=== PATIENT | male | born 1990 | race Caucasian/White ===

== ENCOUNTER 2024-08-17 02:15 | Emergency (ER) | payer BC ==
[2024-08-17 02:54] LABS: #Basophils 0.1 thou/uL (0.0-0.2); #Eosinophils 0.2 thou/uL (0.0-0.7); #Lymphocytes 5.2 thou/uL (1.20-3.40); %Eosinophils 1.9 % (0.0-10.0); %Lymphocytes 49.9 % (21.0-51.0); %Monocytes 9.4 % (0.0-10.0); %Neutrophils 37.8 % (42.0-75.0); Hematocrit 40.8 % (42.0-52.0); Hemoglobin 14.3 g/dL (14.0-18.0); Mean Corpuscular Hemoglobin 32.3 pg (27.0-31.0); Mean Corpuscular Volume 92.4 fl (78.0-98.0); Platelet Count 225 10x3/uL (130-400); RBC Distribution Width 10.7 % (11.5-14.5); Red Blood Cell (RBC) Count 4.41 mill/uL (4.70-6.10); White Blood Cell (WBC) Count 10.5 10x3/uL (4.8-10.8)
[2024-08-17 02:58] LABS: ALT (SGPT) 21 U/L (8-55); AST (SGOT) 33 U/L (5-34); Albumin 4.2 g/dL (3.5-5.0); Alkaline Phosphatase 47 U/L (40-110); Anion Gap 20 mmol/L (10-20); BUN (Urea Nitrogen) 13 mg/dL (8.9-20.6); Bilirubin, Total 0.6 mg/dL (0.2-1.2); Calc. Creatinine Clearance 0 mL/min (70-130); Calcium 9.1 mg/dL (7.8-10.44); Carbon Dioxide 17 mmol/L (22-29); Chloride 107 mmol/L (98-107); Estimated GFR 77; Globulin 3.1 g/dL (2.4-3.5); Glucose 108 mg/dL (70-105); Lipase 39 U/L (8-78); Potassium 3.6 mmol/L (3.5-5.1); Protein, Total 7.3 g/dL (6.0-8.3); Prothrombin Time 13.3 sec (12.0-14.7); Sodium 140 mmol/L (136-145)
[2024-08-17 02:59] LABS: PTT 25.5 sec (22.9-36.1)
[2024-08-17] MEDS ORDERED: Morphine 4 MG/ML VIAL ONE ×2 (03:00→03:40)
[2024-08-17] MEDS ORDERED: Ondansetron PF 4 MG/2 ML Vial ONE (03:00)
[2024-08-17 03:01] LABS: Alcohol 247.4 mg/dL (Less than 10)
[2024-08-17 04:05] LABS: Bilirubin Negative (Negative); Blood, Urine Large (Negative); Clarity Clear (Clear); Glucose, Urine (Dipstick) Negative (Negative); Ketone, Urine Negative (Negative); Leukocyte Negative (Negative); Nitrite Negative (Negative); Protein, Urine (Dipstick) Negative (Neg-Trace); Urobilinogen 0.2 mg/dL (Less than 2); pH, Urine 6.5 (5.0-9.0)
[2024-08-17 04:26] LABS: Bacteria/HPF None Seen HPF (None Seen); CAUTI Indications for Culture Acute Hematuria; RBC/HPF Greater than 50 HPF (0-3); Squamous Epithelial 0-3 HPF (0-3); WBC/HPF None Seen HPF (0-3)
[2024-08-17 04:27] LABS: Amphetamine Detected (NotDetected); Benzodiazepine Screen Not Detected (NotDetected); Cocaine Metabolite Screen Not Detected (NotDetected); Methadone Not Detected (NotDetected); Methamphetamine Not Detected (NotDetected); Opiate Screen Detected (NotDetected); Phencyclidine (PCP) Not Detected (NotDetected); THC/Cannabinoid Screen Not Detected (NotDetected); Tricyclic Screen Not Detected (NotDetected); Urine Culture Reflex No No
[2024-08-17 04:28] LABS: Barbiturates Screen Not Detected (NotDetected); Oxycodone Screen Not Detected (NotDetected)
[2024-08-17] MEDS ORDERED: Bacitracin 1 PK ONE (04:38)
[2024-08-17] MEDS ORDERED: cefTRIAXone (ROCEPHIN) 1 GM VIAL ONE (05:42)
[2024-08-17] MEDS ORDERED: Sterile Water 10 ML ONE (05:42)
[2024-08-17 06:38] LABS: Hematocrit 40.2 % (42.0-52.0); Hemoglobin 14.1 g/dL (14.0-18.0)
[2024-08-17] MEDS ORDERED: Iopamidol 370 76% 100 ML VIAL ONE (10:14)
== END 2024-08-17 08:04 | disposition home or self-care (01) ==
LOC: BURERS 02:15
DX: S31.114A Laceration without foreign body of abdominal wall, left lower quadrant without penetration into peritoneal cavity, initial encounter (principal); S30.22XA Contusion of scrotum and testes, initial encounter; V86.55XA Driver of 3- or 4- wheeled all-terrain vehicle (ATV) injured in nontraffic accident, initial encounter
CPT/HCPCS: 12042; 36415; 70450; 71260; 72125; 74177; 80053; 80306; 80307; 81001; 83690; 85025; 85610; 85730; 86850; 86900; 86901; 93005; 94760; 96372; 96374; 96375; 96376; J0696; J2270; J2405; Q9967